=== PATIENT | male | born 1965 | race Caucasian/White ===

== ENCOUNTER → 2016-07-21 | Day surgery (SDC) | payer MEDICAID ==
[~2016-07-21] MED LIST: NS 1,000 ML IV SCH
[2016-07-21 10:49] LABS: INR 1.16 (0.83-1.16); PROTIME(PATIENT) 14.8 SEC (12.0-15.0)
[2016-07-21 10:50] LABS: APTT 32.9 SEC (23.0-38.0)
== END | disposition home or self-care (01) ==
LOC: FIMAGING 09:45
PROVIDERS: ATTEND Nurse Practitioner
DX: Z53.9 Procedure and treatment not carried out, unspecified reason (principal)